=== PATIENT | female | born 1965 | race Caucasian/White ===

== ENCOUNTER 2016-10-18 19:01 | Emergency (ER) | payer OTHER ==
[~2016-10-18] VITALS: Ht 172.7 cm; Wt 67.1 kg
[2016-10-18 19:04] VITALS: BP 90/61; PULSE 69; TEMP 36.7; O2SAT 100; Ht 172.7 cm; Wt 67.1 kg
[2016-10-18] MEDS ORDERED: TRAZ100T29 PO (19:21)
[2016-10-18] MEDS ORDERED: ALPR1TAB3 PO (19:21)
[2016-10-18] MEDS ORDERED: MULT-506 PO (19:21)
[2016-10-18] MEDS ORDERED: BUPR-79 PO (19:21)
[2016-10-18] MEDS ORDERED: SUCR5SUS PO (19:21)
[2016-10-18] MEDS ORDERED: SIME180C6 PO (19:21)
[2016-10-18] MEDS ORDERED: MULT-1018 PO (19:21)
[2016-10-18] MEDS ORDERED: HYDR50CA2 PO (19:21)
[2016-10-18] MEDS ORDERED: OMEP40CA41 PO (19:21)
[2016-10-18] MEDS ORDERED: VALA500T60 PO (19:21)
--- NOTE | 2016-10-18 19:42 | DIAGNOSTIC IMAGING REPORT ---
RIGHT HAND MIN 3 VIEWS ROUTINE CLINICAL HISTORY: 51 years-old Female presenting with R hand pain Right. TECHNIQUE: Frontal, oblique, and lateral views of the right hand were obtained. COMPARISON: None. FINDINGS: Fracture of the neck of the fifth metacarpal with minimal apex dorsal angulation. The fracture plane does not appear to extend into the fifth metacarpophalangeal joint. Mild ulnar deviation of the second through fifth fingers, which may be positional. Minimal degenerative change suggested at the first metacarpophalangeal joint and scaphotrapezial joint. No osteopenia or significant soft tissue swelling. Chronic ulnar styloid fracture noted. IMPRESSION: Fracture of the neck of the fifth metacarpal with minimal angulation. Minimal degenerative changes. Electronically signed by: Rajesh Navarro M.D. 10/18/2016 7:41 PM Dictated Date/Time: 10/18/2016 7:37 PM
--- NOTE | 2016-10-19 01:32 | EMERGENCY ROOM VISIT NOTE ---
ED Visit Note First contact with patient: 19:16 Chief Complaint: Right hand pain. History of Present Illness: Ms. Ceja is a 51-year-old white female who ambulates into the ED accompanied by a male friend complaining right hand pain over the fourth metacarpal and MCP joint. Historically patient reports she has severe rheumatoid arthritis to her hands. Additionally she reports she's had a previous boxer fracture to the fifth metacarpal that was never treated. Patient reports over last few days she was moving a lot of heavy boxes. Yesterday she started having some mild pain over the fourth metacarpal and MCP joint. Today she reports the pain is now severe. Currently she describes her pain as a deep achy sensation and sharp. She rates her discomfort 6.5/10. There is radiation of her discomfort into her wrist. Her pain worsens with palpation of the fourth metacarpal and MCP joint, extension of the index finger at the MCP joint. She has not identified any alleviating factors related to the pain. She has not taken any medications for pain prior to arrival at the hospital. Associated with her pain she reports she has difficulty extending her fourth and fifth MCP joints. She denies elbow pain, proximal forearm pain, hand numbness/tingling, recent direct trauma, previous similar symptoms with her rheumatoid arthritis, fevers, chills, sweats, other joint pains. Review of Systems: As noted above in history of present illness. 8 body systems were reviewed and found to be negative as noted above. Past Medical History: As previously noted, gastric ulcers. Current Medications: Medications Dose Route/Sig Max Daily Dose Days Date Category Hair Skin and Nails Formu (Multiple Vitamins W/ Minerals) 1 Tab Tab 1 Tab PO DAILY 10/18/16 Reported Carafate (Sucralfate) 1 Gm/10 Ml Susp 30 Ml PO TID 10/18/16 Reported Phazyme (Simethicone) 180 Mg Cap 180 Mg PO BID 10/18/16 Reported Vistaril (Hydroxyzine Pamoate) 50 Mg Cap 50 Mg PO TID 10/18/16 Reported Multivitamin (Multivitamins) Tab 1 Tab PO DAILY 10/18/16 Reported Valtrex (Valacyclovir HCl) 500 Mg Tab 500 Mg PO TID 10/18/16 Reported Prilosec (Omeprazole) 40 Mg Cap 40 Mg PO DAILY 7/25/17 Reported Trazodone (Trazodone HCl) 100 Mg Tab 100 Mg PO HS 10/18/16 Reported Xanax (Alprazolam) 1 Mg Tab 1 Mg PO TID 10/18/16 Reported Wellbutrin Sr (Bupropion HCl) 150 Mg Ertab 150 Mg PO BID 10/18/16 Reported Allergies to Medications: Patient denies. Social History: Patient is not employed; she feels safe in her home environment ; she denies tobacco and alcohol use. Physical Examination: Vital Signs: Date Time Temp Pulse Resp B/P (MAP) Pulse Ox O2 Delivery O2 Flow Rate FiO2 10/18/16 19:04 36.7 69 18 90/61 100 Room Air GENERAL: 51-year-old female in mild to moderate distress due to pain, chronically ill-appearing, afebrile and hemodynamically stable. NEUROLOGICAL: Awake, alert and oriented to person, place and time. Answering questions appropriately and following commands. Normal gait. SKIN: Warm, dry and pink. Right Hand: Patient has mild erythema and edema over the distal aspect of the fourth metacarpal and the fourth MCP joint. Skin does not appear cellulitic. There is no lymphangitis. There is minimal warmth to the area. RIGHT UPPER EXTREMITY: No gross bony deformity. No tenderness in the elbow or proximal forearm. There is tenderness starting just proximal to the wrist and extends throughout the fourth metacarpal and fourth MCP joint. Please note soft tissue eruptions under SKIN above. I do not appreciate any bony deformity or crepitus throughout the fourth metacarpal and fourth MCP joint. There is no tenderness over the fifth metacarpal or fifth MCP joint. Both the ring and the little finger are held in flexion. When the fourth finger is lifted out of flexion she has pain in the area for swelling. When the fifth finger was lifted into into extension she had no discomfort. Throughout the fingers the skin was warm and pink and capillary refill was brisk. She was able to distinguish light sensations through all dermatomes. ED Course: Patient is assessed as noted above. Patient's medication list was reviewed. Patient was offered pain medications and refused. Right Hand X-Rays: Were read by myself and the radiologist and shows a fracture of the neck of the fifth metacarpal with minimal angulation; this was felt to be an old fracture by myself as I was not able to elicit any tenderness in this area. Patient's hand and fingers were placed in an ulnar gutter splint. Patient was educated about tonight's findings and instructed on her treatment plan; she verbalizes understanding and agreement with this plan. Clinical Impression: Right fourth metacarpal and MCP joint pain and swelling. Disposition: Patient discharged home in stable condition accompanied by her ; prior to departure she was attempted to be reassessed but refused to answer questions. Plan: Comfort measures including splint, ice and her current medications including her narcotics were instructed on use. Patient was encouraged to follow-up with her measurement specialist for recheck and possible re-x-ray. Patient was encouraged return ED for worsening/uncontrolled pain, uncontrolled swelling, finger weakness/numbness/tingling or any new/concerning symptoms.
== END 2016-10-18 20:47 | disposition home or self-care (01) ==
LOC: C.EDB 19:04 → C.EDD 20:47
DX: M25.541 Pain in joints of right hand (principal); M25.441 Effusion, right hand; K25.9 Gastric ulcer, unspecified as acute or chronic, without hemorrhage or perforation; Z79.899 Other long term (current) drug therapy